=== PATIENT | male | born 1955 | race Caucasian/White ===

== ENCOUNTER → 2024-11-18 13:59 | Outpatient (REF) | payer MEDICARE, SELFPAY | LOC: DHSLP 13:59 | PROVIDERS: ATTENDING PHYSICIAN Internal Medicine Cardiovascular Disease; FAMILY PHYSICIAN Internal Medicine | DX: G47.33 Obstructive sleep apnea (adult) (pediatric) (principal); G47.61 Periodic limb movement disorder | CPT/HCPCS: 95810 ==